=== PATIENT | female | born 1995 | race Caucasian/White ===

== ENCOUNTER 2016-06-15 18:56 | Outpatient (CLI) | payer MEDICAID | END 2016-06-15 20:20 | disposition home or self-care (01) | DX: O47.02 False labor before 37 completed weeks of gestation, second trimester (principal); Z3A.25 25 weeks gestation of pregnancy ==

== ENCOUNTER 2016-08-16 22:57 | Outpatient (CLI) | payer MEDICAID | END 2016-08-16 23:50 | disposition home or self-care (01) | DX: O98.513 Other viral diseases complicating pregnancy, third trimester (principal); A08.4 Viral intestinal infection, unspecified; Z3A.34 34 weeks gestation of pregnancy ==

== ENCOUNTER 2016-09-11 08:38 | Emergency (ER) | payer MEDICAID ==
[2016-09-11 08:46] VITALS: BP 106/73
[2016-09-11] MEDS ORDERED: BENZOCAINE/TETRACAINE/BUTAMBEN SPRAY 56 GM ONE (09:53)
[2016-09-11] MEDS ORDERED: CEPHALEXIN 250 MG CAPSULE PO STA (09:56)
[2016-09-11] MEDS ORDERED: CEPHALEXIN 250 MG CAPSULE PO ONE (09:58)
--- NOTE | 2016-09-11 09:59 | ED Physician Documentation ---
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 - Present Medications Home Medications: Ambulatory Orders Medication Instructions Recorded Confirmed Pnv95/Iron Fum/Folic Acid 1 tab PO DAILY 02/15/16 09/11/16 [ Caplet] Cephalexin [Keflex] 500 mg PO Q6H #28 capsule 09/11/16 - Allergies Allergies/Adverse Reactions: Allergies Allergy/AdvReac Type Severity Reaction Status Date / Time No Known Drug Allergies Allergy Verified 09/11/16 08:46 - Social History Does the pt smoke?: No Smoking Status: Former smoker PD ED PE NORMAL - Vitals Vital signs reviewed: Yes - Cardiac Cardiac: RRR - Respiratory Respiratory: No respiratory distress, Clear bilaterally - Abdomen Abdomen: Other (gravid) - Derm Derm: Other (small abscess upper inner R thigh) Results - Vitals Vitals: Vital Signs - 24 hr 09/11/16 08:44 Temperature 36.4 C L Heart Rate 102 H Respiratory 18 Rate Blood Pressure 106/73 O2 Saturation 100 Oxygen O2 Source Room air Procedures - Abscess I&D (location) R thigh Preparation: Alcohol, Topical spray Incision: Needle aspiration, Purulent drainage (2 cc), Culture obtained Other: Pt tolerated well, Dressing applied, Antibiotic prescribed PD MEDICAL DECISION MAKING - ED course ED course: FHT 150 Departure - Departure Disposition: 01 Home, Self Care Clinical Impression: Abscess Condition: Good Instructions: ED Abscess IandD Prescriptions: Cephalexin [Keflex] 500 mg PO Q6H #28 capsule Comments: Keflex is Category B safe in but please let your rougher helper know about any medications you are taking Warm compresses for 20 minutes three times a day will help clear the infection as well
== END 2016-09-11 10:38 | disposition home or self-care (01) ==
LOC: ED 08:38
DX: O26.893 Other specified pregnancy related conditions, third trimester (principal); L02.415 Cutaneous abscess of right lower limb; Z3A.37 37 weeks gestation of pregnancy; Z87.891 Personal history of nicotine dependence
CPT/HCPCS: 87070; 87205; 99283; A9270

== ENCOUNTER 2016-09-14 22:07 | Outpatient (CLI) | payer MEDICAID | END 2016-09-14 23:16 | disposition home or self-care (01) | DX: O34.219 Maternal care for unspecified type scar from previous cesarean delivery (principal); N85.8 Other specified noninflammatory disorders of uterus; O99.820 Streptococcus B carrier state complicating pregnancy; O76 Abnormality in fetal heart rate and rhythm complicating labor and delivery; Z3A.38 38 weeks gestation of pregnancy ==

== ENCOUNTER 2016-10-17 20:01 | Emergency (ER) | payer MEDICAID ==
[2016-10-17 21:06] LABS: BILIRUBIN,URINE NEGATIVE (NEGATIVE)
[2016-10-17 21:10] LABS: UA w/ MICROSCOPIC CHARGE YES
--- NOTE | 2016-10-17 21:25 | ED Physician Documentation ---
PD HPI FEMALE - Stated complaint Stated Complaint: FEMALE - Chief complaint Chief Complaint: Abd Pain - History obtained from History obtained from: Patient, Family - History of Present Illness Timing - onset: How many days ago (2) Timing - details: Gradual onset, Still present Associated symptoms: Pelvic pain, Dysuria, Urinary frequency. 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 Patient states that over the last few days she had developed dysuria and increased urinary frequency. Patient also states that the area around her vaginal tears has been painful. Review of Systems Constitutional: denies: Fever, Chills, Myalgias Ears: denies: Ear pain, Drainage/discharge Cardiac: denies: Chest pain / pressure, Palpitations Respiratory: denies: Dyspnea, Cough GI: reports: Abdominal Pain. 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 - Present Medications Home Medications: Ambulatory Orders Medication Instructions Recorded Confirmed Pnv95/Iron Fum/Folic Acid 1 tab PO DAILY 02/15/16 09/11/16 [ Caplet] Cephalexin [Keflex] 500 mg PO Q6H #28 capsule 09/11/16 Nitrofurantoin Monohyd/M-Cryst 100 mg PO BID 5 Days 10/17/16 [Macrobid 100 mg Capsule] - Allergies Allergies/Adverse Reactions: Allergies Allergy/AdvReac Type Severity Reaction Status Date / Time No Known Drug Allergies Allergy Verified 09/11/16 08:46 - Social History Does the pt smoke?: No Smoking Status: Former smoker PD ED PE NORMAL - Vitals Vital signs reviewed: Yes - General General: Alert and oriented X 3, No acute distress, Well developed/nourished - HEENT HEENT: Atraumatic, PERRL - Neck Neck: Supple, no meningeal sign, No bony TTP - Cardiac Cardiac: RRR, No murmur - Respiratory Respiratory: No respiratory distress, Clear bilaterally - Abdomen Abdomen: Soft, Non distended - Derm Derm: Normal color, Warm and dry, No rash - Extremities Extremities: No deformity, Normal ROM s pain, No edema - Neuro Neuro: Alert and oriented X 3, No motor deficit, No sensory deficit, Normal speech - Psych Psych: Normal mood, Normal affect PD ED PE EXPANDED - Female Female : Other (mild vaginal erythmea, no abscess, fluid collection or significant drainage). No: Vaginal Discharge Results - Vitals Vitals: Vital Signs - 24 hr 10/17/16 20:13 Temperature 36.6 C Heart Rate 101 H Respiratory 18 Rate Blood Pressure 110/82 H O2 Saturation 99 Oxygen O2 Source Room air - Labs Labs: Laboratory Tests 10/17/16 20:55 Urine Color YELLOW Urine Clarity HAZY Urine pH 6.[address] 1.020 Urine Protein NEGATIVE Urine Glucose (UA) NEGATIVE Urine Ketones TRACE Urine Occult Blood SMALL H Urine Nitrite NEGATIVE Urine Bilirubin NEGATIVE Urine Urobilinogen 0.2 (NORMAL) Ur Leukocyte Esterase SMALL H Urine RBC 6-10 H Urine WBC 11-25 H Ur Squamous Epith Cells RARE Squamous Urine Bacteria Few Ur Microscopic Review INDICATED Urine Culture Comments INDICATED PD MEDICAL DECISION MAKING - ED course Complexity details: reviewed old records, reviewed results, re-evaluated patient , considered differential, d/w patient, d/w family ED course: Patient was seen and examined at bedside. Patient was well appearing and vital signs were within normal limits. Patient's urine was collected. pelvic exam was performed. Patient's symptoms and results were consistent with a urinary tract infection. There was no abscess or sign of infected wound. Patient required no further work up at this time and was stable for discharge with outpatient follow up. Departure - Departure Disposition: 01 Home, Self Care Clinical Impression: Urinary tract infection Condition: Good Instructions: ED UTI Cystitis Female Follow-Up: Skye Rasmussen ARNP [Primary Care Provider] - Within 1 week Prescriptions: Nitrofurantoin Monohyd/M-Cryst [Macrobid 100 mg Capsule] 100 mg PO BID 5 Days Comments: Your symptoms today are being caused by a urinary tract infection and vaginitis. For the urinary tract infection you had your first antibiotic tonight and you will be on if for the next 5 days. It is safe for breast feeding. For the vaginitis try to keep the area clean and dry and changing the pads more quickly to keep the area dry. You should follow up with your doctor within the next week if your symptoms persist. You should return to the emergency department for fevers, chills, vomiting, new, worsening or uncontrollable symptoms.
[2016-10-17 21:26] LABS: UR CULTURE IF IND INDICATED
[2016-10-17] MEDS ORDERED: NITROFURANTOIN MACRO 100 MG CAPSULE PO STA (21:42)
[2016-10-17] MEDS ORDERED: NITROFURANTOIN MACRO 100 MG CAPSULE PO ONE (21:44)
[2016-10-17 21:58] VITALS: BP 114/63
== END 2016-10-17 21:57 | disposition home or self-care (01) ==
LOC: ED 20:01
DX: O86.20 Urinary tract infection following delivery, unspecified (principal); O86.13 Vaginitis following delivery; Z87.891 Personal history of nicotine dependence
CPT/HCPCS: 81001; 87086; 99283; A9270; 81003

== ENCOUNTER 2017-04-19 20:52 | Emergency (ER) | payer MEDICAID ==
[2017-04-19 21:29] LABS: BASOPHILS % (AUTO) 0.5 %; EOSINOPHILS # (AUTO) 0.1 10^3/uL (0.0-0.7); EOSINOPHILS % (AUTO) 0.8 %; HCT - HEMATOCRIT 43.9 % (37.0-47.0); HGB - HEMOGLOBIN 14.8 g/dL (12.0-16.0); LYMPHOCYTES # (AUTO) 2.3 10^3/uL (1.5-3.5); LYMPHOCYTES % (AUTO) 24.4 %; MEAN CORPUSCULAR HEMOGLOBIN 28.2 pg (27.0-31.0); MEAN CORPUSCULAR HGB CONC 33.6 g/dL (32.0-36.0); MEAN CORPUSCULAR VOLUME 83.7 fL (81.0-99.0); MEAN PLATELET VOLUME 8.6 fL (7.9-10.8); MONOCYTES # (AUTO) 0.4 10^3/uL (0.0-1.0); MONOCYTES % (AUTO) 4.7 %; NEUTROPHILS # (AUTO) 6.6 10^3/uL (1.5-6.6); NEUTROPHILS % (AUTO) 69.6 %; RED BLOOD COUNT 5.24 10^6/uL (4.20-5.40); RED CELL DISTRIBUTION WIDTH 13.2 % (12.0-15.0); UNCORRECTED WHITE BLOOD COUNT 9.5 x10^3/uL; WHITE BLOOD COUNT 9.5 x10^3/uL (4.8-10.8)
[2017-04-19 21:31] LABS: BILIRUBIN,URINE NEGATIVE (NEGATIVE)
[2017-04-19 21:34] LABS: HCG UR QUAL NEGATIVE; UA CHARGE (STRIP ONLY) YES; UR CULTURE IF IND NOT INDICATED
[2017-04-19 21:41] LABS: ALBUMIN/GLOBULIN RATIO 1.3 (1.0-2.2); BILIRUBIN,TOTAL 0.6 mg/dL (0.2-1.0); CALCIUM 9.4 mg/dL (8.5-10.3); CREATININE 0.5 mg/dL (0.4-1.0); POTASSIUM 3.5 mmol/L (3.5-5.0); TOTAL PROTEIN 7.9 g/dL (6.7-8.2)
--- NOTE | 2017-04-19 22:39 | ED Physician Documentation ---
PD HPI ABD PAIN - Stated complaint Stated Complaint: ABD PX - Chief complaint Chief Complaint: Abd Pain - History obtained from History obtained from: Patient, Family - History of Present Illness Timing - onset: How many weeks ago (3) Timing - details: Intermittant, Waxing and waning Quality: Cramping, Aching Location: RLQ, LLQ Worsened by: Other (urinating or deficating) Associated symptoms: No: Fever, Nausea, Vomiting, Diarrhea, Constipation, Dysuria, Hematuria, Chest pain, Dizzy, Vaginal bleeding, Vaginal dc Similar symptoms before: Has not had sx before Recently seen: Not recently seen - Additional information Additional information: patient is a 22 year old female presenting to the emergency department for intermittent abdominal pain. patient states that since around thanksgiving ( about 3 weeks prior) when patient goes to the bathroom afterwords she will have sharp pains on both sides of her abdomen. the pain goes away without any intervention. patient denies nausea, vomiting, fevers, chills, vaginal bleeding , or vaginal discharge. Review of Systems Constitutional: denies: Fever, Chills Eyes: reports: Reviewed and negative Ears: reports: Reviewed and negative Nose: reports: Reviewed and negative Throat: reports: Reviewed and negative Cardiac: denies: Chest pain / pressure Respiratory: reports: Reviewed and negative GI: reports: Abdominal Pain. 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 - Present Medications Home Medications: Ambulatory Orders Medication Instructions Recorded Confirmed Pnv95/Iron Fum/Folic Acid 1 tab PO DAILY 02/15/16 09/11/16 [ Caplet] Cephalexin [Keflex] 500 mg PO Q6H #28 capsule 09/11/16 Nitrofurantoin Monohyd/M-Cryst 100 mg PO BID 5 Days capsule 10/17/16 [Macrobid 100 mg Capsule] - Allergies Allergies/Adverse Reactions: Allergies Allergy/AdvReac Type Severity Reaction Status Date / Time No Known Drug Allergies Allergy Verified 09/11/16 08:46 - Social History Does the pt smoke?: Yes Smoking Status: Current every day smoker Does the pt drink ETOH?: Yes Does the pt have substance abuse?: No - Immunizations Immunizations are current?: Yes PD ED PE NORMAL - Vitals Vital signs reviewed: Yes - General General: Alert and oriented X 3, No acute distress, Well developed/nourished - HEENT HEENT: Atraumatic, PERRL, Pharynx benign - Neck Neck: Supple, no meningeal sign - Cardiac Cardiac: RRR, No murmur - Respiratory Respiratory: No respiratory distress - Abdomen Abdomen: Soft, Non tender, Non distended - Derm Derm: Normal color, Warm and dry, No rash - Extremities Extremities: No deformity, Normal ROM s pain, No calf tenderness / cord - Neuro Neuro: Alert and oriented X 3, No motor deficit, No sensory deficit, Normal speech - Psych Psych: Normal mood Results - Vitals Vitals: Vital Signs - 24 hr 04/19/17 04/19/17 20:59 22:49 Temperature 36.4 C L Heart Rate 106 H 109 H Respiratory 18 20 Rate Blood Pressure 107/76 111/75 O2 Saturation 100 98 Oxygen O2 Source Room air - Labs Labs: Laboratory Tests 04/19/17 04/19/17 04/19/17 21:05 21:23 21:23 WBC 9.5 RBC 5.24 Hgb 14.8 Hct 43.9 MCV 83.7 MCH 28.2 MCHC 33.6 RDW 13.2 Plt Count 236 MPV 8.6 Neut # 6.6 Lymph # 2.3 [place] # 0.4 Eos # 0.1 Baso # 0.0 Absolute Nucleated RBC 0.00 Nucleated RBC % 0.0 Sodium 136 Potassium 3.5 Chloride 103 Carbon Dioxide 24 Anion Gap 9.0 BUN 13 Creatinine 0.5 Estimated GFR (MDRD) 153 Glucose 91 Calcium 9.4 Total Bilirubin 0.6 AST 60 H ALT 86 H Alkaline Phosphatase 76 Total Protein 7.9 Albumin 4.5 Globulin 3.4 Albumin/Globulin Ratio 1.3 Lipase 18 L Urine Color YELLOW Urine Clarity CLEAR Urine pH 7.0 Ur Specific [place] 1.025 Urine Protein NEGATIVE Urine Glucose (UA) NEGATIVE Urine Ketones NEGATIVE Urine Occult Blood NEGATIVE Urine Nitrite NEGATIVE Urine Bilirubin NEGATIVE Urine Urobilinogen 0.2 (NORMAL) Ur Leukocyte Esterase NEGATIVE Ur Microscopic Review NOT INDICATED Urine Culture Comments NOT INDICATED Urine HCG, Qual NEGATIVE PD MEDICAL DECISION MAKING - ED course Complexity details: reviewed old records, reviewed results, re-evaluated patient , considered differential, d/w patient, d/w family ED course: Patient was seen and examined at bedside. patient had no pain at that time. Urine was collected and labs were drawn. patient's diagnostics were within normal limits. Patient's abdominal exam on discharge was non-tender, non distended and overall unremarkable. the etiology of the patient's pain is unknown but unlikely life threatening in nature. Patient was stable for discharge with outpatient follow up. Departure - Departure Disposition: Home, Self Care Clinical Impression: Abdominal pain Condition: Good Instructions: Abdominal Pain Follow-Up: Skye Rasmussen ARNP [Primary Care Provider] - As Needed Comments: Your diagnostics today are within normal limits. there is no sign of acute infection. You can take motrin or tylenol as needed fro pain. You should follow up with your doctor if your symptoms persist. You may return to the emergency department at any time for new, worsening or uncontrollable symptoms. Discharge Date/Time: 04/19/17 22:50
[2017-04-19 22:50] VITALS: BP 111/75
== END 2017-04-19 22:50 | disposition home or self-care (01) ==
LOC: ED 20:52
DX: R10.32 Left lower quadrant pain (principal); R10.31 Right lower quadrant pain; F17.200 Nicotine dependence, unspecified, uncomplicated
CPT/HCPCS: 36415; 80053; 81001; 81003; 81025; 83690; 85025; 87086; 99283

== ENCOUNTER 2017-06-13 20:10 | Emergency (ER) | payer MEDICAID ==
[2017-06-13 20:41] LABS: BASOPHILS # (AUTO) 0.1 10^3/uL (0.0-0.1); EOSINOPHILS # (AUTO) 0.1 10^3/uL (0.0-0.7); EOSINOPHILS % (AUTO) 1.1 %; HGB - HEMOGLOBIN 14.6 g/dL (12.0-16.0); LYMPHOCYTES # (AUTO) 2.4 10^3/uL (1.5-3.5); LYMPHOCYTES % (AUTO) 24.9 %; MEAN CORPUSCULAR HEMOGLOBIN 28.6 pg (27.0-31.0); MEAN PLATELET VOLUME 8.8 fL (7.9-10.8); MONOCYTES # (AUTO) 0.5 10^3/uL (0.0-1.0); MONOCYTES % (AUTO) 4.8 %; NEUTROPHILS # (AUTO) 6.6 10^3/uL (1.5-6.6); NEUTROPHILS % (AUTO) 68.2 %; PLT - PLATELET COUNT 251 10^3/uL (130-450); RED BLOOD COUNT 5.11 10^6/uL (4.20-5.40); RED CELL DISTRIBUTION WIDTH 13.7 % (12.0-15.0); WHITE BLOOD COUNT 9.7 x10^3/uL (4.8-10.8)
[2017-06-13 20:53] LABS: ALBUMIN 4.7 g/dL (3.2-5.5); ALBUMIN/GLOBULIN RATIO 1.5 (1.0-2.2); BILIRUBIN,TOTAL 0.4 mg/dL (0.2-1.0); CALCIUM 9.6 mg/dL (8.5-10.3); CREATININE 0.6 mg/dL (0.4-1.0); TOTAL PROTEIN 7.9 g/dL (6.7-8.2)
[2017-06-13 21:00] LABS: GLUCOSE, URINE (UA) NEGATIVE (NEGATIVE); KETONES,URINE (UA) NEGATIVE (NEGATIVE); LEUKOCYTE ESTERASE, URINE NEGATIVE (NEGATIVE); NITRITE,URINE NEGATIVE (NEGATIVE); OCCULT BLOOD,URINE LARGE (NEGATIVE); PROTEIN,URINE NEGATIVE (NEGATIVE); UROBILINOGEN,URINE 0.2 (NORMAL) E.U./dL (NORMAL)
[2017-06-13 21:05] LABS: BILIRUBIN,URINE NEGATIVE (NEGATIVE); CLARITY,URINE HAZY (CLEAR); HCG UR QUAL NEGATIVE; ICTOTEST,URINE NEGATIVE
[2017-06-13] MEDS ORDERED: KETOROLAC 60 MG/2 ML VIAL IVP STA (21:07)
--- NOTE | 2017-06-13 21:08 | ED Physician Documentation ---
PD HPI ABD PAIN - Stated complaint Stated Complaint: ABD PX - Chief complaint Chief Complaint: Abd Pain - History obtained from History obtained from: Patient, Family - History of Present Illness Timing - onset: Chronic Timing - details: Gradual onset, Still present Quality: Cramping, Aching Location: All over / everywhere Radiation: Lower back, Left flank, Right flank Associated symptoms: Nausea. No: Vomiting Similar symptoms before: Work up / diagnostics Recently seen: Emergency Dept - Additional information Additional information: Patient is a 22 year old female with a history of anxiety, depression and chronic pain who is presenting to the emergency department for bilateral flank and abdominal pain. patient states that it has been going on for weeks. Patient went to [facility] where she was told her IUD was out of place. Patient states that the pain persisted so she came to the emergency department. Patient complains of nausea but no vomiting, no urinary, bowel or vaginal complaints. Review of Systems Constitutional: denies: Fever Eyes: reports: Reviewed and negative Ears: reports: Reviewed and negative Nose: reports: Reviewed and negative Throat: reports: Reviewed and negative Cardiac: denies: Chest pain / pressure Respiratory: denies: Cough, Wheezing GI: reports: Abdominal Pain, Nausea. 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 Home Medications: Ambulatory Orders Medication Instructions Recorded Confirmed No Known Home Medications [No 06/13/17 06/13/17 Known Home Medications] - Allergies Allergies/Adverse Reactions: Allergies Allergy/AdvReac Type Severity Reaction Status Date / Time No Known Drug Allergies Allergy Verified 06/13/17 20:35 - Social History Does the pt smoke?: Yes Smoking Status: Current every day smoker Does the pt drink ETOH?: Yes Does the pt have substance abuse?: No - Immunizations Immunizations are current?: Yes PD ED PE NORMAL - Vitals Vital signs reviewed: Yes - General General: Alert and oriented X 3 - HEENT HEENT: Atraumatic, PERRL - Neck Neck: Supple, no meningeal sign - Cardiac Cardiac: RRR, No murmur - Respiratory Respiratory: No respiratory distress - Abdomen Abdomen: Soft - Derm Derm: Normal color, No rash - Extremities Extremities: No deformity - Neuro Neuro: Alert and oriented X 3, No motor deficit, Normal speech PD ED PE EXPANDED - General General: Alert, In Pain - HEENT HEENT: Dry mucous membranes - Abdomen Abdomen: Tender to palpation, Generalized/diffuse. No: Rebound, Guarding Results - Vitals Vitals: Vital Signs - 24 hr 06/13/17 06/13/17 20:13 20:16 Temperature 36.1 C L 36.1 C L Heart Rate 104 H 104 H Respiratory 24 24 Rate Blood Pressure 113/85 H 113/85 H O2 Saturation 100 100 Oxygen O2 Source Room air - Labs Labs: Laboratory Tests 06/13/17 06/13/17 06/13/17 20:35 20:35 20:48 WBC 9.7 RBC 5.11 Hgb 14.6 Hct 43.0 MCV 84.0 MCH 28.6 MCHC 34.0 RDW 13.7 Plt Count 251 MPV 8.8 Neut # 6.6 Lymph # 2.4 [place] # 0.5 Eos # 0.1 Baso # 0.1 Absolute Nucleated RBC 0.00 Nucleated RBC % 0.0 Sodium 138 Potassium 3.7 Chloride 108 Carbon Dioxide 21 Anion Gap 9.0 BUN 13 Creatinine 0.6 Estimated GFR (MDRD) 124 Glucose 103 H Calcium 9.6 Total Bilirubin 0.4 AST 32 ALT 35 Alkaline Phosphatase 80 Total Protein 7.9 Albumin 4.7 Globulin 3.2 Albumin/Globulin Ratio 1.5 Lipase 19 L Urine Color DARK YELLOW Urine Clarity HAZY Urine pH 6.0 Ur Specific [place] >=1.030 H Urine Protein NEGATIVE Urine Glucose (UA) NEGATIVE Urine Ketones NEGATIVE Urine Occult Blood LARGE H Urine Nitrite NEGATIVE Urine Bilirubin NEGATIVE Urine Urobilinogen 0.2 (NORMAL) Ur Leukocyte Esterase NEGATIVE Urine RBC TNTC H Urine WBC 0-3 Ur Squamous Epith Cells RARE Squamous Urine Bacteria None Seen Ur Microscopic Review INDICATED Urine Culture Comments NOT INDICATED Urine HCG, Qual NEGATIVE PD MEDICAL DECISION MAKING - ED course Complexity details: reviewed old records, reviewed results, re-evaluated patient , considered differential, d/w patient, d/w family ED course: Patient was seen and examined at bedside. labs were drawn and urine was collected. patient was treated with toradol when it was found that she was not . previous results from neighboring ER were requested and reviewed. Patient had a renal calculi that possibly was in the ureter now. Patient was started on a fluid bolus. Patient stated that the toradol had taken the edge off but still was in pain so was treated with IV lidocaine. After the infusion patient stated that her pain had resolved. patient required no further work up and was stale for discharge with outpatient follow up. Departure - Departure Disposition: Home, Self Care Clinical Impression: Renal colic Condition: Good Instructions: ED Stone Renal W Colic Follow-Up: Skye Rasmussen ARNP [Primary Care Provider] - Comments: It is important that you stay well hydrated. You should avoid diuretics ( especially soda). You can take motrin and tylenol as needed for pain. you should follow up with your doctor who placed the IUD for removal and replacement. You may return to the emergency department at any time for new, worsening or uncontrollable symptoms.
[2017-06-13 21:19] LABS: BACTERIA,URINE None Seen /HPF (None Seen); RBC,URINE TNTC /HPF (0-5); SQUAMOUS EPITHELIAL CELL,UR RARE Squamous (<= Few)
[2017-06-13] MEDS ORDERED: LIDOCAINE-MPF 2% 10 ML in SODIUM CHLORIDE 0.9% 50 ML IV STA (21:19)
[2017-06-13] MEDS ORDERED: SODIUM CHLORIDE 0.9% 1,000 ML IV ONE (21:19)
[2017-06-13] MEDS ORDERED: LIDOCAINE IV ONE (21:32)
[2017-06-13 22:42] VITALS: BP 111/73
== END 2017-06-13 22:42 | disposition home or self-care (01) ==
LOC: ED 20:10
DX: N23 Unspecified renal colic (principal); F41.9 Anxiety disorder, unspecified; F32.9 Major depressive disorder, single episode, unspecified; G89.29 Other chronic pain; Z97.5 Presence of (intrauterine) contraceptive device; F17.200 Nicotine dependence, unspecified, uncomplicated
CPT/HCPCS: 36415; 80053; 81001; 81025; 83690; 85025; 96365; 96375; 99283; 99284; J7040; 81003; 87086

== ENCOUNTER 2017-08-20 09:33 | Emergency (ER) | payer MEDICAID ==
--- NOTE | 2017-08-20 09:52 | ED Physician Documentation ---
PD HPI DYSPNEA - Stated complaint Stated Complaint: DIFFICULTY BREATHING - Chief complaint Chief Complaint: Resp - History obtained from History obtained from: Patient, Family - History of Present Illness Timing - onset: How many weeks ago (1) Timing - onset during: Rest Timing - duration: Weeks (1) Timing - details: Gradual onset, Still present Inciting event(s): URI Improved by: Rest Worsened by: Exertion, Coughing Associated symptoms: Cough, Wheezing, Other (ear pain). No: Hemoptysis Similar symptoms before: Diagnosis (bronchitis) Recently seen: Not recently seen - Additional information Additional information: 32-year-old mother of 2 has developed cough congestion and shortness of breath. She is a smoker she does have issues with cough infrequently but over the past week she has had a persistent cough and she has some ear pain as well. She is noted that she is a bit short of breath with any form of exertion. She has used an inhaler previously she does not have an inhaler with her or in her possession. 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 - Present Medications Home Medications: Ambulatory Orders Medication Instructions Recorded Confirmed Albuterol Sulf [Ventolin Hfa 1 - 2 puffs INH Q4HR PRN #1 inhaler 08/20/17 Inhaler] Azithromycin [Zithromax] 250 mg PO DAILY #6 tablet 08/20/17 predniSONE [Deltasone] 10 mg PO DAILY #26 tablet 08/20/17 - Allergies Allergies/Adverse Reactions: Allergies Allergy/AdvReac Type Severity Reaction Status Date / Time No Known Drug Allergies Allergy Verified 08/20/17 09:42 - Social History Does the pt smoke?: Yes Smoking Status: Current every day smoker Does the pt drink ETOH?: Yes Does the pt have substance abuse?: No - Immunizations Immunizations are current?: Yes PD ED PE NORMAL - Vitals Vital signs reviewed: Yes (tachypneia) - General General: Alert and oriented X 3, No acute distress, Well developed/nourished - HEENT HEENT: Atraumatic, PERRL, EOMI, Other (both TM's are dull yellow thickended with some inflamation and abscence of landmarks. ) - Neck Neck: Supple, no meningeal sign, No bony TTP - Cardiac Cardiac: RRR, No murmur - Respiratory Respiratory: No respiratory distress, Other (diminished breath sounds) - Abdomen Abdomen: Soft, Non tender - Back Back: No CVA TTP, No spinal TTP - Derm Derm: Normal color, Warm and dry, No rash - Extremities Extremities: No deformity, No edema - Neuro Neuro: Alert and oriented X 3, No motor deficit, No sensory deficit, Normal speech Eye Opening: Spontaneous Motor: Obeys Commands Verbal: Oriented GCS Score: 15 - Psych Psych: Normal mood, Normal affect Results - Vitals Vitals: Vital Signs - 24 hr 08/20/17 08/20/17 09:35 10:25 Temperature 36.3 C L Heart Rate 99 98 Respiratory 28 H 16 Rate Blood Pressure 100/61 O2 Saturation 100 Oxygen O2 Source Room air - EKG (time done) 0938 Rate: Rate (enter#) (79) Rhythm: NSR Other comments: Other comments (RSR in V1) Compare to prior EKG: Old EKG unavailable Computer interpretation: Disagree with computer (the rhythm is sinus) - Rads (name of study) 2 veiw chest Radiology: Prelim report reviewed (Impression: No acute cardiopulmonary abnormality.), EMP read indepedently, See rad report PD MEDICAL DECISION MAKING - ED course Complexity details: reviewed results, re-evaluated patient, d/w patient, d/w family ED course: 22-year-old female with shortness of breath cough and congestion has otitis on examination and she is administered a DuoNeb treatment she is given 10 mg of dexamethasone and we will put her on some antibiotic in a inhaler and a short course of prednisone. Departure - Departure Disposition: 01 Home, Self Care Clinical Impression: Otitis media Qualifiers: Otitis media type: suppurative Chronicity: acute Laterality: bilateral Recurrence: not specified as recurrent Spontaneous tympanic membrane rupture: without spontaneous rupture Qualified Code(s): H66.003 - Acute suppurative otitis media without spontaneous rupture of ear drum, bilateral Condition: Stable Instructions: ED Otitis Media Acute Adult, ED Bronchitis Asthmatic Follow-Up: Skye Rasmussen ARNP [Primary Care Provider] - Prescriptions: Albuterol Sulf [Ventolin Hfa Inhaler] 1 - 2 puffs INH Q4HR PRN #1 inhaler PRN Reason: Shortness Of Air/Wheezing Azithromycin [Zithromax] 250 mg PO DAILY #6 tablet predniSONE [Deltasone] 10 mg PO DAILY #26 tablet
[2017-08-20] MEDS ORDERED: DEXAMETHASONE 10 MG/ML VIAL PO STA (10:05)
[2017-08-20] MEDS ORDERED: IPRATROPIUM/ALBUTEROL 3 ML NEB INH STA (10:05)
--- NOTE | 2017-08-20 10:32 | XRAY Report ---
EXAM: CHEST RADIOGRAPHY EXAM DATE: 08/20/2017 10:18 AM. CLINICAL HISTORY: Decreased breath sounds. COMPARISON: None available. TECHNIQUE: 2 views. FINDINGS: Lungs/Pleura: No focal opacities evident. No pleural effusion. No pneumothorax. Normal volumes. Mediastinum: Heart and mediastinal contours are unremarkable. Other: None. IMPRESSION: No acute cardiopulmonary abnormality. [facility] Referring Provider Line: [phone] SITE ID: [id number]
[2017-08-20 11:21] VITALS: BP 127/66
== END 2017-08-20 11:16 | disposition home or self-care (01) ==
LOC: ED 09:33
DX: H66.003 Acute suppurative otitis media without spontaneous rupture of ear drum, bilateral (principal); F17.200 Nicotine dependence, unspecified, uncomplicated
CPT/HCPCS: 71046; 93005; 94640; 94664; 99283; 99284

== ENCOUNTER 2017-09-24 16:25 | Emergency (ER) | payer MEDICAID ==
[2017-09-24 17:16] LABS: BILIRUBIN,URINE NEGATIVE (NEGATIVE); GLUCOSE, URINE (UA) NEGATIVE (NEGATIVE); KETONES,URINE (UA) NEGATIVE (NEGATIVE); LEUKOCYTE ESTERASE, URINE TRACE (NEGATIVE); NITRITE,URINE NEGATIVE (NEGATIVE); OCCULT BLOOD,URINE LARGE (NEGATIVE); PH,URINE 7.5 PH (5.0-7.5); PROTEIN,URINE NEGATIVE (NEGATIVE); UROBILINOGEN,URINE 0.2 (NORMAL) E.U./dL (NORMAL)
[2017-09-24 17:22] LABS: CLARITY,URINE CLEAR (CLEAR); HCG UR QUAL NEGATIVE
[2017-09-24 17:34] LABS: BACTERIA,URINE None Seen /HPF (None Seen); RBC,URINE TNTC /HPF (0-5); SQUAMOUS EPITHELIAL CELL,UR MOD Squamous (<= Few)
[2017-09-24 18:04] LABS: BASOPHILS % (AUTO) 0.6 %; EOSINOPHILS # (AUTO) 0.1 10^3/uL (0.0-0.7); HGB - HEMOGLOBIN 14.5 g/dL (12.0-16.0); MEAN CORPUSCULAR HGB CONC 33.6 g/dL (32.0-36.0); MEAN CORPUSCULAR VOLUME 83.2 fL (81.0-99.0); MEAN PLATELET VOLUME 9.1 fL (7.9-10.8); MONOCYTES # (AUTO) 0.4 10^3/uL (0.0-1.0); MONOCYTES % (AUTO) 5.9 %; NEUTROPHILS # (AUTO) 5.1 10^3/uL (1.5-6.6); NEUTROPHILS % (AUTO) 66.5 %; PLT - PLATELET COUNT 212 10^3/uL (130-450); RED BLOOD COUNT 5.19 10^6/uL (4.20-5.40); RED CELL DISTRIBUTION WIDTH 13.7 % (12.0-15.0); WHITE BLOOD COUNT 7.7 x10^3/uL (4.8-10.8)
[2017-09-24] MEDS ORDERED: IBUPROFEN 800 MG TABLET PO STA (18:13)
--- NOTE | 2017-09-24 18:15 | ED Physician Documentation ---
PD HPI ABD PAIN - Stated complaint Stated Complaint: ABD PX - Chief complaint Chief Complaint: Abd Pain - History obtained from History obtained from: Patient - History of Present Illness Timing - onset: Today (22-year-old woman otherwise healthy with a history of ovarian cysts, never operated on except for a presents with left lower pelvic pain there is a crampy sensation started today. She is worried about potential misplacement of her recently placed IUD which is a month and a half old. She is having spotting but not heavy bleeding. 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: Ovarian cysts : Kidney stones Psych: Depression, Anxiety, Post traumatic stress disorder - Past Surgical History Past Surgical History: Yes /RN FIRST ASSISTANT: section - Present Medications Home Medications: Ambulatory Orders Medication Instructions Recorded Confirmed Ibuprofen [Motrin] 800 mg PO Q8H PRN #30 tablet 09/24/17 - Allergies Allergies/Adverse Reactions: Allergies Allergy/AdvReac Type Severity Reaction Status Date / Time No Known Drug Allergies Allergy Verified 09/24/17 16:44 - Social History Does the pt smoke?: Yes Smoking Status: Current every day smoker Does the pt drink ETOH?: Yes Does the pt have substance abuse?: No - Immunizations Immunizations are current?: Yes PD ED PE NORMAL - Vitals Vital signs reviewed: Yes - General General: Alert and oriented X 3, No acute distress - Abdomen Abdomen: Normal bowel sounds, Soft, Non tender - Female Female : Medical Laboratory Technical Officer present (Rosanne Ortega RN), Other (Modest blood in the vault, strings seem to be in their appropriate position, no tenderness.) - Back Back: No CVA TTP, No spinal TTP - Neuro Neuro: Alert and oriented X 3, Normal speech - Psych Psych: Normal mood, Normal affect Results - Vitals Vitals: Vital Signs - 24 hr 09/24/17 09/24/17 16:42 19:58 Temperature 36.9 C Heart Rate 93 71 Respiratory 16 20 Rate Blood Pressure 109/66 109/71 O2 Saturation 97 99 Oxygen O2 Source Room air - Labs Labs: Laboratory Tests 09/24/17 09/24/17 09/24/17 16:52 17:43 17:43 WBC 7.7 RBC 5.19 Hgb 14.5 Hct 43.2 MCV 83.2 MCH 28.0 MCHC 33.6 RDW 13.7 Plt Count 212 MPV 9.1 Neut # 5.1 Lymph # 2.0 [place] # 0.4 Eos # 0.1 Baso # 0.0 Absolute Nucleated RBC 0.00 Nucleated RBC % 0.1 Sodium 138 Potassium 3.8 Chloride 104 Carbon Dioxide 27 Anion Gap 7.0 BUN 11 Creatinine 0.6 Estimated GFR (MDRD) 124 Glucose 91 Calcium 9.6 Total Bilirubin 0.7 AST 27 ALT 35 Alkaline Phosphatase 73 Total Protein 7.3 Albumin 4.1 Globulin 3.2 Albumin/Globulin Ratio 1.3 Lipase 24 Urine Color YELLOW Urine Clarity CLEAR Urine pH 7.5 Ur Specific [place] 1.025 Urine Protein NEGATIVE Urine Glucose (UA) NEGATIVE Urine Ketones NEGATIVE Urine Occult Blood LARGE H Urine Nitrite NEGATIVE Urine Bilirubin NEGATIVE Urine Urobilinogen 0.2 (NORMAL) Ur Leukocyte Esterase TRACE H Urine RBC TNTC H Urine WBC 0-3 Ur Squamous Epith Cells MOD Squamous H Urine Bacteria None Seen Ur Microscopic Review INDICATED Urine Culture Comments NOT INDICATED Urine HCG, Qual NEGATIVE - Rads (name of study) Pelvic sono Radiology: Prelim report reviewed (normal, IUD in place) PD MEDICAL DECISION MAKING - ED course ED course: 22-year-old with left pelvic pain. She is nontender and there is no evidence of significant abnormality on exam, blood work or ultrasound. Departure - Departure Disposition: 01 Home, Self Care Clinical Impression: Pelvic pain Condition: Good Record reviewed to determine appropriate education?: Yes Instructions: ED Pelvic Pain [facility] Prescriptions: Ibuprofen [Motrin] 800 mg PO Q8H PRN #30 tablet PRN Reason: PAIN &/OR FEVER Comments: Call your doctor to arrange a follow-up appointment, make the next available appointment. In the interim, return anytime if worse or if new symptoms develop.
[2017-09-24 18:18] LABS: ALBUMIN 4.1 g/dL (3.2-5.5); ALBUMIN/GLOBULIN RATIO 1.3 (1.0-2.2); BILIRUBIN,TOTAL 0.7 mg/dL (0.2-1.0); CALCIUM 9.6 mg/dL (8.5-10.3); CREATININE 0.6 mg/dL (0.4-1.0); TOTAL PROTEIN 7.3 g/dL (6.7-8.2)
--- NOTE | 2017-09-24 19:53 | Ultrasound Report ---
EXAM: PELVIC ULTRASOUND EXAM DATE: 09/24/2017 07:37 PM. CLINICAL HISTORY: Left pelvic pain. COMPARISON: None. TECHNIQUE: Realtime transabdominal pelvic scan performed to identify the uterus and adnexa and as an overview of other pelvic structures, followed by transvaginal scan to provide greater detail of the uterus and adnexa, with static image documentation. FINDINGS Uterus: 8.4 x 4.7 x 4.3 cm, volume 88.7 cc. Retroflexed position. Normal overall size and echotexture. Masses: None. Endometrium: [address] Cervix: Unremarkable. Right Ovary: 3.3 x 2.3 x 2.3 cm, volume 9.1 cc. Normal echotexture and blood flow. Left Ovary: 3.4 x 2.2 x 2.2 cm, volume 8.6 cc. Normal echotexture and blood flow. Free Fluid: None. Other: None. IMPRESSION: IUD in place, otherwise unremarkable pelvic ultrasound. [facility] Referring Provider Line: [phone] SITE ID: [id number] REVISED: REPORT ORIG. SIGNED ON 09/24/2017@1953; ORDERS LINKED ON 2017jll MTDD
[2017-09-24 19:58] VITALS: BP 109/71
== END 2017-09-24 21:13 | disposition home or self-care (01) ==
LOC: ED 16:25
DX: R10.2 Pelvic and perineal pain (principal); Z87.442 Personal history of urinary calculi; Z97.5 Presence of (intrauterine) contraceptive device; F17.200 Nicotine dependence, unspecified, uncomplicated
CPT/HCPCS: 36415; 76830; 76856; 80053; 81001; 81025; 83690; 85025; 87491; 87591; 93975; 99283; A9270; 81003; 87086

== ENCOUNTER 2017-10-05 12:40 | Emergency (ER) | payer MEDICAID ==
--- NOTE | 2017-10-05 15:29 | ED Physician Documentation ---
PD HPI HEENT - Stated complaint Stated Complaint: DENTAL SWELLING/PX - Chief complaint Chief Complaint: Heent - History obtained from History obtained from: Patient - History of Present Illness Timing - onset: How many days ago (5) Timing - duration: Days (5had wisdom teeth romoved 5 days ago and is noting increased pain right lower gum area post extraction, along wiht malodor and taste. Concerned about infection. Other extraction sites are okay) Timing - details: Gradual onset (teeth/gums hurting post extractions but the pain and some swelling left lower was gradual the past couple of days.) Location: Tooth Improves: No: Medication Associated symptoms: No: Fever, Congestion, Rhinorrhea, Unable to swallow, Swollen nodes Recently seen: Clinic (dental extractions of wisdom teeth 5 days ago.) Review of Systems Constitutional: denies: Fever, Chills, Myalgias Throat: reports: Dental pain / toothache. 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: Ovarian cysts : Kidney stones Psych: Depression, Anxiety, Post traumatic stress disorder - Past Surgical History Past Surgical History: Yes /BODY WELDER: section - Present Medications Home Medications: Ambulatory Orders Medication Instructions Recorded Confirmed Ibuprofen [Motrin] 800 mg PO Q8H PRN #30 tablet 09/24/17 Chlorhexidine Gluconate [Peridex] 5 ml MM BID #118 ml 10/05/17 Clindamycin HCl [Cleocin HCl] 300 mg PO TID #21 capsule 10/05/17 HYDROcod/ACETAM 5/325 [[place] 5/325] 1 tab PO Q6H PRN #15 tablet 10/05/17 - Allergies Allergies/Adverse Reactions: Allergies Allergy/AdvReac Type Severity Reaction Status Date / Time No Known Drug Allergies Allergy Verified 09/24/17 16:44 - Social History Does the pt smoke?: Yes Smoking Status: Current every day smoker Does the pt drink ETOH?: Yes Does the pt have substance abuse?: No - Immunizations Immunizations are current?: Yes PD ED PE NORMAL - Vitals Vital signs reviewed: Yes - General General: Alert and oriented X 3, No acute distress, Well developed/nourished - HEENT HEENT: Pharynx benign. No: Dentition benign (extraction sites for wisdom teeth healing okay. Right lower has some redness of gum and slight swelling with some odor of the area. No noted drainage nor blood in remaining socket hole. ) - Neck Neck: Supple, no meningeal sign, Other (mild adenopathy right anterior. ) Results - Vitals Vitals: Oxygen O2 Source Room air PD MEDICAL DECISION MAKING - ED course Complexity details: considered differential (some swelling of the gum and states malodor, so concern for infection. No noted abscess. ), d/w patient Departure - Departure Disposition: 01 Home, Self Care Clinical Impression: Pain in gums, Status post tooth extraction Condition: Stable Record reviewed to determine appropriate education?: Yes Follow-Up: Skye Rasmussen ARNP [Primary Care Provider] - Prescriptions: Chlorhexidine Gluconate [Peridex] 5 ml MM BID #118 ml Clindamycin HCl [Cleocin HCl] 300 mg PO TID #21 capsule HYDROcod/ACETAM 5/325 [[place] 5/325] 1 tab PO Q6H PRN #15 tablet PRN Reason: Pain Comments: Drink lots of fluids. Continue the ibuprofen 400-600 mg 3 times a day. Add Tylenol or hydrocodone if needed for pains. Stop the amoxicillin and change to clindamycin instead 3 times a day for a week. Add chlorhexidine oral antiseptic rinse 4 times a day for the next 4 5 days as well. Recheck if not improving over the next few days; follow-up with the dentist. Discharge Date/Time: 10/05/17 16:18
[2017-10-05] MEDS ORDERED: CLINDAMYCIN 150 MG CAPSULE PO STA (15:49)
[2017-10-05] MEDS ORDERED: DEXAMETHASONE 10 MG/ML VIAL PO STA (15:49)
[2017-10-05] MEDS ORDERED: HYDROcod/ACETAM 5/325 MG TABLET PO STA (15:49)
[2017-10-05 16:04] VITALS: BP 110/70
[2017-10-05] MEDS ORDERED: CHERRY SYRUP 10 ML UDC PO ONE (16:07)
== END 2017-10-05 16:18 | disposition home or self-care (01) ==
LOC: ED 12:40
DX: K08.89 Other specified disorders of teeth and supporting structures (principal); K08.409 Partial loss of teeth, unspecified cause, unspecified class; F17.200 Nicotine dependence, unspecified, uncomplicated
CPT/HCPCS: 99283; A9270

== ENCOUNTER 2017-11-18 16:14 | Emergency (ER) | payer MEDICAID ==
[2017-11-18 16:30] VITALS: BP 106/67
--- NOTE | 2017-11-18 16:48 | XRAY Report ---
Procedure Date: 11/18/2017 Accession Number: [id number] / [id number] Procedure: XR - Chest 2 View X-Ray CPT Code: 44319 FULL RESULT: EXAM: CHEST RADIOGRAPHY EXAM DATE: 11/18/2017 04:38 PM. CLINICAL HISTORY: Cough, tight resp. COMPARISON: 08/20/17. TECHNIQUE: 2 views. FINDINGS: Lungs/Pleura: No dense consolidation. No large effusion or pneumothorax. No pulmonary edema. Mediastinum: Heart and mediastinal contours are unremarkable. Other: None. IMPRESSION: No acute radiographic pulmonary abnormalities. [facility]
[2017-11-18] MEDS ORDERED: ALBUTEROL NEB 2.5 MG/3 ML INH STA (18:43)
[2017-11-18] MEDS ORDERED: predniSONE 20 MG TABLET PO STA (18:43)
--- NOTE | 2017-11-18 18:44 | ED Physician Documentation ---
PD HPI DYSPNEA - Stated complaint Stated Complaint: SOA - Chief complaint Chief Complaint: Resp - History obtained from History obtained from: Patient - History of Present Illness Timing - onset: How many days ago (3) Timing - details: Intermittant Inciting event(s): Out of meds Improved by: O2, Inhaler/neb Associated symptoms: Cough, Wheezing. No: Fever Similar symptoms before: Work up / diagnostics Recently seen: Not recently seen - Additional information Additional information: Patient is a 22 year old female presenting to the emergency department for cough and wheezing. Patient states that her symptoms have been going on for the past three days. patient ran out of her inhaler but continues to smoke. 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: Ovarian cysts : Kidney stones HEENT: None Psych: Depression, Anxiety, Post traumatic stress disorder Derm: None - Past Surgical History Past Surgical History: Yes /BENDING ROLL OPERATOR: section - Present Medications Home Medications: Ambulatory Orders Medication Instructions Recorded Confirmed Ibuprofen [Motrin] 800 mg PO Q8H PRN #30 tablet 09/24/17 Chlorhexidine Gluconate [Peridex] 5 ml MM BID #118 ml 10/05/17 Clindamycin HCl [Cleocin HCl] 300 mg PO TID #21 capsule 10/05/17 HYDROcod/ACETAM 5/325 [[place] 5/325] 1 tab PO Q6H PRN #15 tablet 10/05/17 Albuterol Sulfate [Proventil Hfa 1 - 2 puffs INH Q4H PRN #1 inhaler 11/18/17 Inhaler] predniSONE [Prednisone] 40 mg PO DAILY 5 Days tablet 11/18/17 - Allergies Allergies/Adverse Reactions: Allergies Allergy/AdvReac Type Severity Reaction Status Date / Time No Known Drug Allergies Allergy Verified 09/24/17 16:44 - Social History Does the pt smoke?: Yes Smoking Status: Current every day smoker Does the pt drink ETOH?: Yes Does the pt have substance abuse?: No - Immunizations Immunizations are current?: Yes PD ED PE NORMAL - Vitals Vital signs reviewed: Yes - General General: Alert and oriented X 3, No acute distress - HEENT HEENT: Atraumatic, Ears normal, Moist mucous membranes, Pharynx benign - Neck Neck: No adenopathy - Cardiac Cardiac: RRR, No murmur - Respiratory Respiratory: No respiratory distress - Abdomen Abdomen: Soft, Non tender, Non distended - Derm Derm: Normal color, Warm and dry, No rash - Extremities Extremities: No deformity - Neuro Neuro: Alert and oriented X 3, No motor deficit, Normal speech Eye Opening: Spontaneous Motor: Obeys Commands Verbal: Oriented GCS Score: 15 PD ED PE EXPANDED - Respiratory Respiratory: Wheezing (mild wheeze with cough) Results - Vitals Vitals: Vital Signs - 24 hr 11/18/17 11/18/17 16:25 19:00 Temperature 36.1 C L Heart Rate 96 78 Respiratory 20 18 Rate Blood Pressure 106/67 O2 Saturation 96 Oxygen O2 Source Room air - Rads (name of study) chest x-ray Radiology: Final report received (no acute pathology) PD MEDICAL DECISION MAKING - ED course Complexity details: reviewed old records, reviewed results, re-evaluated patient , considered differential, d/w patient ED course: Patient was seen and examined at bedside. chest x-ray had been performed and it was within normal limits. Patient was treated with an inhaler and prednisone. Patient tolerated the treatment well. Patient was well appearing. Patient required no further work up at this time and patient was stable for discharge with outpatient follow up. - Sepsis Event Vital Signs: Vital Signs - 24 hr 11/18/17 11/18/17 16:25 19:00 Temperature 36.1 C L Heart Rate 96 78 Respiratory 20 18 Rate Blood Pressure 106/67 O2 Saturation 96 Oxygen O2 Source Room air Departure - Departure Disposition: 01 Home, Self Care Clinical Impression: Bronchitis Condition: Good Instructions: ED Bronchitis Asthmatic Follow-Up: Skye Rasmussen CUSTOMER SERVICE TRAINER [Primary Care Provider] - Within 3 Days Prescriptions: Albuterol Sulfate [Proventil Hfa Inhaler] 1 - 2 puffs INH Q4H PRN #1 inhaler PRN Reason: Shortness Of Air/Wheezing predniSONE [Prednisone] 40 mg PO DAILY 5 Days tablet Comments: Your diagnostics today were within normal limits. there is no sign of pneumonia. You will be on the steroids for the next five days. you should use your inhaler as needed. the most important thing is to quit smoking. you should follow up with your doctor if your symptoms don't improve. You may return to the emergency department at any time for new, worsening or uncontrollable symptoms. Forms: Activity restrictions Discharge Date/Time: 11/18/17 19:25
== END 2017-11-18 19:25 | disposition home or self-care (01) ==
LOC: ED 16:14
DX: J40 Bronchitis, not specified as acute or chronic (principal); F17.200 Nicotine dependence, unspecified, uncomplicated; Z91.14 Patient's other noncompliance with medication regimen
CPT/HCPCS: 71046; 94640; 94664; 99283; J7512

== ENCOUNTER 2018-01-13 08:00 | Outpatient (CLI) | payer MEDICAID ==
[2018-01-13 13:28] LABS: ALBUMIN/GLOBULIN RATIO 1.4 (1.0-2.2); BILIRUBIN,TOTAL 0.8 mg/dL (0.2-1.0); CALCIUM 8.9 mg/dL (8.5-10.3); CREATININE 0.6 mg/dL (0.4-1.0); TOTAL PROTEIN 6.9 g/dL (6.7-8.2)
[2018-01-13 13:47] LABS: BASOPHILS # (AUTO) 0.1 10^3/uL (0.0-0.1); BASOPHILS % (AUTO) 0.6 %; EOSINOPHILS # (AUTO) 0.1 10^3/uL (0.0-0.7); EOSINOPHILS % (AUTO) 1.4 %; HGB - HEMOGLOBIN 14.5 g/dL (12.0-16.0); LYMPHOCYTES # (AUTO) 2.8 10^3/uL (1.5-3.5); LYMPHOCYTES % (AUTO) 33.6 %; MEAN CORPUSCULAR HEMOGLOBIN 30.2 pg (27.0-31.0); MEAN CORPUSCULAR HGB CONC 34.9 g/dL (32.0-36.0); MEAN CORPUSCULAR VOLUME 86.5 fL (81.0-99.0); MEAN PLATELET VOLUME 9.5 fL (7.9-10.8); MONOCYTES # (AUTO) 0.4 10^3/uL (0.0-1.0); MONOCYTES % (AUTO) 4.7 %; NEUTROPHILS % (AUTO) 59.7 %; PLT - PLATELET COUNT 191 10^3/uL (130-450); RED BLOOD COUNT 4.79 10^6/uL (4.20-5.40); RED CELL DISTRIBUTION WIDTH 13.2 % (12.0-15.0); WHITE BLOOD COUNT 8.4 x10^3/uL (4.8-10.8)
== END 2018-01-13 08:01 | disposition home or self-care (01) ==
LOC: LAB.N 08:00
PROVIDERS: ATTEND Family Medicine
DX: R10.31 Right lower quadrant pain (principal); F41.0 Panic disorder [episodic paroxysmal anxiety]
CPT/HCPCS: 36415; 80053; 82150; 83690; 84443; 85025

== ENCOUNTER 2018-01-21 08:00 | Outpatient (CLI) | payer MEDICAID | END 2018-01-21 08:01 | disposition home or self-care (01) | LOC: LAB.R 08:00 | PROVIDERS: ATTEND Registered Nurse | DX: Z30.432 Encounter for removal of intrauterine contraceptive device (principal) | CPT/HCPCS: 87491; 87591 ==

== ENCOUNTER 2019-02-01 10:14 | Outpatient (CLI) | payer MEDICAID ==
[2019-02-01 12:18] LABS: BASOPHILS % (AUTO) 0.5 %; EOSINOPHILS # (AUTO) 0.1 10^3/uL (0.0-0.7); EOSINOPHILS % (AUTO) 0.9 %; HGB - HEMOGLOBIN 14.8 g/dL (12.0-16.0); LYMPHOCYTES # (AUTO) 2.4 10^3/uL (1.5-3.5); LYMPHOCYTES % (AUTO) 29.4 %; MEAN CORPUSCULAR HEMOGLOBIN 30.1 pg (27.0-31.0); MEAN CORPUSCULAR HGB CONC 34.7 g/dL (32.0-36.0); MEAN CORPUSCULAR VOLUME 86.8 fL (81.0-99.0); MEAN PLATELET VOLUME 11.4 fL (7.9-10.8); MONOCYTES # (AUTO) 0.5 10^3/uL (0.0-1.0); MONOCYTES % (AUTO) 5.7 %; NEUTROPHILS # (AUTO) 5.1 10^3/uL (1.5-6.6); NEUTROPHILS % (AUTO) 63.1 %; PLT - PLATELET COUNT 200 10^3/uL (130-450); RED BLOOD COUNT 4.91 10^6/uL (4.20-5.40); RED CELL DISTRIBUTION WIDTH 13.1 % (12.0-15.0); WHITE BLOOD COUNT 8.1 x10^3/uL (4.8-10.8)
[2019-02-01 12:33] LABS: ALBUMIN 4.2 g/dL (3.2-5.5); ALBUMIN/GLOBULIN RATIO 1.4 (1.0-2.2); CALCIUM 9.1 mg/dL (8.5-10.3); CREATININE 0.7 mg/dL (0.4-1.0); TOTAL PROTEIN 7.3 g/dL (6.7-8.2)
== END 2019-02-01 23:59 | disposition home or self-care (01) ==
LOC: LAB.N 10:14
PROVIDERS: ATTEND Physician Assistant Medical
DX: R19.00 Intra-abdominal and pelvic swelling, mass and lump, unspecified site (principal); R10.9 Unspecified abdominal pain
CPT/HCPCS: 36415; 80053; 85025

== ENCOUNTER 2019-02-07 11:42 | Outpatient (CLI) | payer MEDICAID ==
--- NOTE | 2019-02-07 14:46 | Ultrasound Report ---
Reason: ABD LUMP, ABD CRAMPS Procedure Date: 02/07/2019 Accession Number: [id number] / [id number] Procedure: US - Abdomen Limited CPT Code: FULL RESULT: EXAM: ABDOMEN ULTRASOUND LIMITED, RUQ EXAM DATE: 02/07/2019 12:46 PM. CLINICAL HISTORY: Abdominal pain. Periumbilical anterior abdominal wall lump. COMPARISON: None. TECHNIQUE: Real-time scanning was performed with static images obtained. FINDINGS: Liver: Normal in size and echotexture. 15.0 cm. Main portal vein flow: Hepatopetal. Gallbladder: Normal. No stones, wall thickening, or sonographic Egan's sign. Biliary System: CBD measures 7.1 mm. No intrahepatic or extrahepatic ductal dilatation. Other: The right renal length is 11.3 cm. Right kidney is normal. Targeted ultrasound was performed of the palpable painful periumbilical site, and there is no corresponding abnormality. IMPRESSION: Negative examination. [facility]
== END 2019-02-07 11:43 | disposition home or self-care (01) ==
LOC: DI 11:42
PROVIDERS: ATTEND Physician Assistant Medical
DX: R19.00 Intra-abdominal and pelvic swelling, mass and lump, unspecified site (principal); R10.9 Unspecified abdominal pain
CPT/HCPCS: 76705

== ENCOUNTER 2019-04-19 11:33 | Outpatient (CLI) | payer MEDICAID ==
[2019-04-19 11:53] LABS: BASOPHILS % (AUTO) 0.6 %; EOSINOPHILS # (AUTO) 0.1 10^3/uL (0.0-0.7); EOSINOPHILS % (AUTO) 1.8 %; HGB - HEMOGLOBIN 14.7 g/dL (12.0-16.0); LYMPHOCYTES # (AUTO) 1.9 10^3/uL (1.5-3.5); LYMPHOCYTES % (AUTO) 28.8 %; MEAN CORPUSCULAR HGB CONC 34.3 g/dL (32.0-36.0); MEAN CORPUSCULAR VOLUME 90.5 fL (81.0-99.0); MEAN PLATELET VOLUME 11.2 fL (7.9-10.8); MONOCYTES # (AUTO) 0.4 10^3/uL (0.0-1.0); MONOCYTES % (AUTO) 6.5 %; NEUTROPHILS # (AUTO) 4.1 10^3/uL (1.5-6.6); NEUTROPHILS % (AUTO) 61.8 %; PLT - PLATELET COUNT 194 10^3/uL (130-450); RED BLOOD COUNT 4.74 10^6/uL (4.20-5.40); RED CELL DISTRIBUTION WIDTH 13.4 % (12.0-15.0); WHITE BLOOD COUNT 6.6 x10^3/uL (4.8-10.8)
[2019-04-19 12:08] LABS: CALCIUM 9.7 mg/dL (8.5-10.3); CREATININE 0.8 mg/dL (0.4-1.0)
== END 2019-04-19 11:34 | disposition home or self-care (01) ==
LOC: LAB 11:33
PROVIDERS: ATTEND Obstetrics & Gynecology
DX: Z30.2 Encounter for sterilization (principal)
CPT/HCPCS: 36415; 80048; 85025; 86850; 86900; 86901

== ENCOUNTER 2019-04-20 13:01 | Day surgery (SDC) | payer MEDICAID ==
[~2019-04-20 13:01] MED LIST: CEFAZOLIN SODIUM IN 0.9 % NACL 2 GM/100 ML BAG IV ONE
[2019-04-20] MEDS ORDERED: fentaNYL 100 MCG/2 ML VIAL IVP ONE (13:02)
[2019-04-20] MEDS ORDERED: GLYCOPYRROLATE 1 MG/5 ML VIAL IVP ONE (13:02)
[2019-04-20] MEDS ORDERED: PROPOFOL 200 MG/20 ML VIAL IVP ONE (13:02)
[2019-04-20] MEDS ORDERED: ROCURONIUM 50 MG/5 ML VIAL IVP ONE (13:02)
[2019-04-20] MEDS ORDERED: DEXAMETHASONE 4 MG/ML VIAL IVP ONE (13:02)
[2019-04-20] MEDS ORDERED: KETOROLAC 30 MG/ML VIAL IVP ONE (13:02)
[2019-04-20] MEDS ORDERED: MIDAZOLAM 2 MG/2 ML VIAL IVP ONE (13:02)
--- NOTE | 2019-04-20 13:24 | ANESTHESIA ---
Pre-Anesthesia VS, & Labs - Diagnosis Desires permanent sterility - Procedure Lap salpingectomy Height 5 ft 7 in Body Mass Index 25.5 - NPO >8 hours - Is Patient ?: No - Lab Results Lab results reviewed: Yes Home Medications and Allergies Allergies/Adverse Reactions: Allergies Allergy/AdvReac Type Severity Reaction Status Date / Time No Known Drug Allergies Allergy Verified 09/24/17 16:44 Anes History & Medical History - Anesthetic History Anesthesia Complications: reports: No previous complications Family history of Anesthesia Complications: Denies Family history of Malignant Hyperthermia: Denies - Medical History Cardiovascular: reports: None Pulmonary: reports: None Gastrointestinal: reports: None Urinary: reports: Kidney stones Neuro: reports: None Musculoskeletal: reports: None Endocrine/Autoimmune: reports: None Blood Disorders: reports: None Skin: reports: None Smoking Status: Current every day smoker Psychosocial: reports: No issues indicated - Surgical History Eyes Ears Nose Throat (EENT): Other (third molars) Gynecologic: section Exam General: Alert, Oriented x3, Cooperative Dental: TMJ (Right side) Mouth Openin Fingerbreadth Mallampati classification: II Thyromental Distance: greater than 6 cm Respiratory: Lungs clear Cardiovascular: Regular rate Mental/Cognitive Status: Alert/Oriented X3, Normal for patient Cognitive Status: Within normal limits Plan Anesthesia Type: General Consent for Procedure(s) Verified and Reviewed: Yes Code Status: Attempt Resuscitation ASA classification: 2-Mild systemic disease Is this case an emergency?: No
[2019-04-20] MEDS ORDERED: LACTATED RINGERS 1,000 ML IV ONE (13:31)
[2019-04-20 13:32] LABS: HCG UR QUAL NEGATIVE
[2019-04-20] MEDS ORDERED: BUPIVACAINE 0.5% PF 30 ML VIAL ONE (14:11)
[2019-04-20] MEDS ORDERED: LIDOCAINE 1%-EPI 1:100000 20 ML MDV ONE (14:12)
[2019-04-20] MEDS ORDERED: LIDOCAINE MPF 2%-EPI 1:200000 20 ML VIAL ONE (14:26)
[2019-04-20] MEDS ORDERED: LORazepam 2 MG/ML VIAL IVP PRN (16:10)
[2019-04-20] MEDS ORDERED: HYDROmorphone 0.5 MG/0.5 ML SYRINGE IVP PRN (16:10)
[2019-04-20] MEDS ORDERED: ONDANSETRON 4 MG/2 ML VIAL IVP PRN (16:10)
[2019-04-20] MEDS ORDERED: oxyCODONE 5 MG TABLET PO PRN (16:10)
--- NOTE | 2019-04-20 16:16 | OPERATIVE REPORT ---
Operative Report - General Procedure Date: 04/20/19 Planned Procedure: Laproscopic bilateral salpingectomy Pre-Op Diagnosis: requests perminant sterilization Procedure Performed: laproscopic bilateral salpingectomy Lysis of uterine abdominal Adhesions Post Op Diagnosis: requests perminant sterlization omental, uterine abdominal adhesions - Procedure Note Primary Surgeon: Dat Soto MD Anesthesia Provider: Efra Jasso CRNA Anesthesia Technique: General ET tube Pathology: left and right fallopian tubes IV Fluids (mL): 500 Estimated Blood Loss (mL): 10 Urine Output (mL): 30 Findings: dense omental, uterine, to peritoneal adhesions, Normal tubes and ovaries Complications: none - Other Other Information/Narrative: [id number]
[2019-04-20] MEDS ORDERED: ACETAMINOPHEN 1,000 MG/100 ML 100 ML IV ONE (16:30)
[2019-04-20 17:03] VITALS: BP 114/82
--- NOTE | 2019-04-20 17:10 | OPERATIVE REPORT ---
DATE OF SERVICE: 04/20/2019 Physician: Dat Soto MD PREOPERATIVE DIAGNOSIS: Patient requests permanent sterilization. POSTOPERATIVE DIAGNOSIS: Patient requests permanent sterilization plus dense omental as well as uter [id number] adhesions, normal tubes and ovaries. PROCEDURE: Laparoscopic bilateral salpingectomy with lysis of omental as well as uterine adhesions. SURGEON: Dat Soto MD ANESTHESIA: General via endotracheal tube. DIAGRAM CLERK: Efra Jasso CRNA. ESTIMATED BLOOD LOSS: 10 mL. URINE OUTPUT: 30 mL. FINDINGS: Upon entering the abdominal cavity, there was evidence of dense omental adhesions to the p eritoneal surface in the midline. There was no evidence of any injury at site of insertion. There w as also evidence of filmy as well as dense uterine adhesions to the anterior abdominal wall. The adh esions were on the left hand side of the peritoneum. The filmy adhesions were noted to be more midli ne in origin. The tubes and ovaries appeared free of disease. The appendix also appeared to be free of disease. DESCRIPTION OF PROCEDURE: Following adequate endotracheal anesthesia, patient was placed in the dors al lithotomy position in Justus stirrups. At this point, a pelvic examination was performed. The diana qasim was palpated anterior. At this point, she was prepped and draped in the usual fashion. A timeou t was performed, at which time the concerns were addressed. A speculum was placed in the vagina. Th e cervix was visualized, grasped posteriorly with a single-tooth tenaculum. The uterus was then soun ded to 10 cm and then dilated up to 7 mm. A uterine manipulator was placed in the cervix and then in flated. At this point, the cervix was released from the single-tooth tenaculum. The twisting press operator's glov es were changed and following this a subumbilical incision was made following injection with 0.25% Ma rcaine with 1% lidocaine with epinephrine. A trocar and sheath were placed under direct visualizatio n. At this point, the abdominal cavity was insufflated. There was no evidence of any injury at the time of the insertion site. Left and right lower quadrant incisions were made following local anesth esia with 0.25% Marcaine with 1% lidocaine with epinephrine. These were both placed under direct vis ualization. At this point, the omental adhesion was noted to the anterior abdominal wall. The camer a was placed in the right lower quadrant port and the midline port was used to insert a LigaSure. Th is was used to cauterize and transect the omental adhesions all the way down to its terminus. There was no bleeding from the omental side or the abdominal wall side. At this point, the adhesions aroun d the uterus were noted. The left fallopian tube was grasped at its fimbriated end and a LigaSure wa s used to cauterize the mesosalpinx all the way to the cornu. The cornua was then cauterized and tra nsected. The right tube and ovary were treated in identical fashion. There was evidence of good hem ostasis at both LigaSure incision sites. There was no evidence of bleeding. Then, utilizing the Lig aSure, the filmy adhesions were taken off the anterior uterine wall where it was adhesed to the perit oneum. There was a very dense adhesion on the left hand side. It was decided that taking this down would be changing this from a minor to a major case. The area was then irrigated totally with irriga tor-aspirator. The peritoneal cavity was then aspirated. There was no evidence of any bleeding. At this point, both left and right lower quadrant ports were removed under direct visualization. There is no evidence of any bleeding. The CO2 was then allowed to escape from the subumbilical port. Bot h ports were closed utilizing 4-0 Monocryl subcuticular with Dermabond being placed. The instruments were then removed from the vagina. The patient tolerated the procedure well and was taken to recove ry in stable condition. Sponge and needle counts were correct. TD: 04/20/2019 16:26
== END 2019-04-20 13:02 | disposition home or self-care (01) ==
LOC: SDS 13:01
PROVIDERS: ATTEND Obstetrics & Gynecology
PROC: 0DNW4ZZ Release Peritoneum, Percutaneous Endoscopic Approach (ICD-10-PCS; 2019-04-20)
PROC: 0UT74ZZ Resection of Bilateral Fallopian Tubes, Percutaneous Endoscopic Approach (ICD-10-PCS; principal; 2019-04-20 14:45)
DX: Z30.2 Encounter for sterilization (principal); K66.0 Peritoneal adhesions (postprocedural) (postinfection); F17.210 Nicotine dependence, cigarettes, uncomplicated
CPT/HCPCS: 49329; 58661; 81025; A9270; J0131; J0690; J7120; 80048; 85025; 86850; 86900; 86901

== ENCOUNTER 2019-08-02 19:42 | Emergency (ER) | payer MEDICAID ==
[2019-08-02 20:18] LABS: BILIRUBIN,URINE NEGATIVE (NEGATIVE); CLARITY,URINE HAZY (CLEAR); GLUCOSE, URINE (UA) NEGATIVE (NEGATIVE); KETONES,URINE (UA) NEGATIVE (NEGATIVE); LEUKOCYTE ESTERASE, URINE SMALL (NEGATIVE); NITRITE,URINE POSITIVE (NEGATIVE); OCCULT BLOOD,URINE SMALL (NEGATIVE); PH,URINE 7.5 PH (5.0-7.5); PROTEIN,URINE 30 mg/dL (NEGATIVE); UROBILINOGEN,URINE 1 (NORMAL) E.U./dL (NORMAL)
[2019-08-02 20:20] LABS: HCG UR QUAL NEGATIVE
[2019-08-02] MEDS ORDERED: cephALEXin 250 MG CAPSULE PO STA (20:21)
--- NOTE | 2019-08-02 20:21 | ED Physician Documentation ---
History of Present Illness - Stated complaint Stated Complaint: FEMALE SOA - Chief complaint Chief Complaint: UTI - Additonal information Additional information: This is a 24-year-old female with history of anxiety who presents with pain and burning on urination and some discomfort over her posterior flanks. She began developing foul-smelling urine several days ago and has had dysuria today. She has a little bit of flank discomfort as well on bilateral sides which is worse with takes a deep breath in. She said that sometimes she feels this way just from her anxiety alone. She denies any cough, fever, history of blood clots, l eg swelling. 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 HEENT: Other - Present Medications Home Medications: Ambulatory Orders Medication Instructions Recorded Confirmed Ibuprofen [Motrin] 800 mg PO Q8H PRN #30 tablet 09/24/17 04/19/19 Cefdinir 300 mg PO BID #14 capsule 08/02/19 Fluconazole [Diflucan] 150 mg PO ONCE PRN #1 tablet 08/02/19 - Allergies Allergies/Adverse Reactions: Allergies Allergy/AdvReac Type Severity Reaction Status Date / Time No Known Drug Allergies Allergy Verified 08/02/19 19:58 - Social History Does the pt smoke?: Yes Smoking Status: Current every day smoker Does the pt drink ETOH?: Yes Does the pt have substance abuse?: No - Immunizations Immunizations are current?: Yes - POLST Patient has POLST: No PD ED PE NORMAL - Vitals Vital signs reviewed: Yes - General General: Alert and oriented X 3, No acute distress - HEENT HEENT: PERRL - Neck Neck: Supple, no meningeal sign - Cardiac Cardiac: RRR, No murmur - Respiratory Respiratory: Clear bilaterally - Abdomen Abdomen: Normal bowel sounds, Soft, Non tender, Non distended - Derm Derm: Warm and dry - Extremities Extremities: No deformity - Neuro Neuro: Alert and oriented X 3 - Psych Psych: Normal mood, Normal affect Results - Vitals Vitals: Vital Signs - 24 hr 08/02/19 08/02/19 19:58 20:50 Temperature 37.1 C 37.0 C Heart Rate 82 99 Respiratory 14 16 Rate Blood Pressure 94/59 L 112/76 O2 Saturation 100 100 Oxygen O2 Source Room air - EKG (time done) 20:30 Other comments: Other comments (Rate 74, rhythm sinus, RSR is present in V1. There is no significant ST segment elevation or depression, intervals within normal limits) - Labs Labs: Laboratory Tests 08/02/19 08/02/19 20:10 20:10 Urine Color YELLOW Urine Clarity HAZY Urine pH 7.5 Ur Specific [place] 1.020 1.020 Urine Protein 30 H Urine Glucose (UA) NEGATIVE Urine Ketones NEGATIVE Urine Occult Blood SMALL H Urine Nitrite POSITIVE H Urine Bilirubin NEGATIVE Urine Urobilinogen 1 (NORMAL) Ur Leukocyte Esterase SMALL H Urine RBC 0-5 Urine WBC 6-10 H Ur Squamous Epith Cells NONE SEEN Amorphous Sediment Few Urine Bacteria Many H Ur Microscopic Review INDICATED Urine Culture Comments INDICATED Urine HCG, Qual NEGATIVE PD MEDICAL DECISION MAKING - ED course Complexity details: considered differential (UTI, pyelonephritis, ACS, dysrhythmia, PE, pneumonia, URI, pneumothorax) ED course: Patient is very well-appearing on arrival, she is clear breath sounds, normal oxygen saturation, no fever or cough, no signs of pneumonia. She has no chest pain, again excellent breath sounds and oxygen saturation, no signs of pneumothorax. PE was considered however patient is PERC negative, making this exceedingly unlikely. She has no chest pain, and on repeat evaluation her shortness of breath is actually improved, making PE or serious pathology extremely unlikely. EKG shows no convincing signs of ischemia or dysrhythmia, No change from past EKG. She has no chest pain, cardiac pathology exceeding likely especially given her age. Urine is positive for UTI, she was given Keflex here. HCG negative. She is nontoxic, afebrile, not tachycardic, no signs of urosepsis or infection requiring hospitalization. We will treat with a course of cefdinir. I reviewed return precautions with the patient, PCP follow-up, the patient was discharged home in good condition, feeling well. Departure - Departure Disposition: 01 Home, Self Care Clinical Impression: UTI (urinary tract infection) Qualifiers: Urinary tract infection type: acute cystitis Hematuria presence: without hematuria Qualified Code(s): N30.00 - Acute cystitis without hematuria Condition: Good Instructions: ED UTI Cystitis Female Follow-Up: Kenny Story PA-C [Primary Care Provider] - Prescriptions: Cefdinir 300 mg PO BID #14 capsule Fluconazole [Diflucan] 150 mg PO ONCE PRN #1 tablet PRN Reason: As Needed Per Provider Orders Comments: You appear to have a UTI today. Take the antibiotic as prescribed. If you are de veloping new or worsening symptoms such as difficulty breathing, chest pain, fever, return to the emergency department. Discharge Date/Time: 08/02/19 20:57
[2019-08-02 20:26] LABS: AMORPHOUS SEDIMENT,UR Few /LPF; BACTERIA,URINE Many /HPF (None Seen); RBC,URINE 0-5 /HPF (0-5); SQUAMOUS EPITHELIAL CELL,UR NONE SEEN (<= Few)
[2019-08-02 20:51] VITALS: BP 112/76
== END 2019-08-02 20:57 | disposition home or self-care (01) ==
LOC: ED 19:42
DX: N30.00 Acute cystitis without hematuria (principal); F17.200 Nicotine dependence, unspecified, uncomplicated
CPT/HCPCS: 81001; 81025; 87086; 87181; 93005; 99283; 99284; A9270; 81003

== ENCOUNTER 2019-09-08 03:57 | Emergency (ER) | payer MEDICAID ==
--- NOTE | 2019-09-08 04:05 | ED Physician Documentation ---
History of Present Illness - Stated complaint Stated Complaint: FEMALE - History obtained from History obtained from: Patient (Patient is a 24-year-old female who presents with a chief complaint of dysuria and suprapubic tenderness. She denies being . She denies any fevers chills or flank pain she reports recently she was diagnosed with urinary tract infection and reports that she completed all of her antibiotics but now she has return of her symptoms she denies pelvic pain vaginal bleeding or vaginal discharge or any history of STIs.) Review of Systems Constitutional: reports: Reviewed and negative Eyes: reports: Reviewed and negative Ears: reports: Reviewed and negative Nose: reports: Reviewed and negative Throat: reports: Reviewed and negative Cardiac: reports: Reviewed and negative Respiratory: reports: Reviewed and negative GI: reports: Reviewed and negative : reports: Dysuria Skin: reports: Reviewed and negative Musculoskeletal: reports: Reviewed and negative Neurologic: reports: Reviewed and negative Psychiatric: reports: Reviewed and negative Endocrine: reports: Reviewed and negative Immunocompromised: reports: Reviewed and negative PD PAST MEDICAL HISTORY - Past Medical History Cardiovascular: None Respiratory: None Neuro: None Endocrine/Autoimmune: None GI: 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: Ovarian 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 : Kidney stones HEENT: Chronic vision loss Psych: Depression, Anxiety, Panic attacks, Post traumatic stress disorder Musculoskeletal: None Derm: None - Past Surgical History Past Surgical 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 HEENT: Other - Present Medications Home Medications: Ambulatory Orders Medication Instructions Recorded Confirmed Ibuprofen [Motrin] 800 mg PO Q8H PRN #30 tablet 09/24/17 04/19/19 Cefdinir 300 mg PO BID #14 capsule 08/02/19 Fluconazole [Diflucan] 150 mg PO ONCE PRN #1 tablet 08/02/19 Ciprofloxacin HCl [Cipro] 500 mg PO BID 7 Days #14 tablet 09/08/19 Phenazopyridine HCl [Pyridium] 100 mg PO TID PRN #6 tablet 09/08/19 - Allergies Allergies/Adverse Reactions: Allergies Allergy/AdvReac Type Severity Reaction Status Date / Time No Known Drug Allergies Allergy Verified 09/08/19 04:10 - Social History Does the pt smoke?: Yes Smoking Status: Current every day smoker Does the pt drink ETOH?: Yes Does the pt have substance abuse?: No - Immunizations Immunizations are current?: Yes - POLST Patient has POLST: No PD ED PE NORMAL - Vitals Vital signs reviewed: Yes - General General: Alert and oriented X 3, No acute distress, Well developed/nourished - HEENT HEENT: Atraumatic, PERRL, Moist mucous membranes - Neck Neck: Supple, no meningeal sign - Cardiac Cardiac: RRR, No murmur, Strong equal pulses - Respiratory Respiratory: No respiratory distress, Clear bilaterally - Abdomen Abdomen: Normal bowel sounds, Soft, Non tender, Non distended, No organomegaly - Female Female : Pt declined - Rectal Rectal: Pt declined - Back Back: No CVA TTP, No spinal TTP - Derm Derm: Normal color, Warm and dry, No rash - Extremities Extremities: No deformity, Normal ROM s pain, No edema, No calf tenderness / cord - Neuro Neuro: Alert and oriented X 3, 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, No motor deficit, No sensory deficit, Normal speech - Psych Psych: Normal mood, Normal affect Results - Vitals Vitals: Vital Signs - 24 hr 09/08/19 04:00 Temperature 36.5 C Heart Rate 89 Respiratory 16 Rate Blood Pressure 115/70 O2 Saturation 98 Oxygen O2 Source Room air - Labs Labs: Laboratory Tests 09/08/19 04:30 Urine Color YELLOW Urine Clarity HAZY Urine pH 6.0 Ur Specific [place] >=1.030 H Urine Protein 100 H Urine Glucose (UA) NEGATIVE Urine Ketones NEGATIVE Urine Occult Blood MODERATE H Urine Nitrite POSITIVE H Urine Bilirubin NEGATIVE Urine Urobilinogen 0.2 (NORMAL) Ur Leukocyte Esterase TRACE H Urine RBC 11-25 H Urine WBC 11-25 H Ur Squamous Epith Cells FEW Squamous Urine Bacteria Moderate H Ur Microscopic Review INDICATED Urine Culture Comments INDICATED Urine HCG, Qual NEGATIVE PD MEDICAL DECISION MAKING - ED course Complexity details: re-evaluated patient (Patient was reexamined patient reports that she did complete her previous course of antibiotics on reexamination she is complaining of some right-sided flank pain at this point we will treat her for pyelonephritis. She will receive 1 dose of intramuscular Rocephin here in the emergency department her urine culture was reviewed its pansensitive given the fact that she failed treatment with Keflex as an outpatient recently we will try different medication reviewing all the sensitivities and different available options for treatment ultimately a joint decision was made with the patient to start her on Cipro should pay she states that she is taken Cipro before I explained all benefits, alternatives, risks to her to include possible tendon injury or rupture to include the Achilles and she would like to proceed with being treated with oral Cipro on outpatient basis she accepts all risks to include any possible adverse outcome to include but not limited to tendon rupture.), considered differential (History is concerning for cystitis, will send a urinalysis for evaluation.), d/w patient, other (Urinalysis is consistent with urinary tract infection patient was treated with Keflex previously her previous urine culture was reviewed and it is pansensitive this point we will treat with Macrobid.) Departure - Departure Disposition: 01 Home, Self Care Clinical Impression: Cystitis, Pyelonephritis Condition: Stable Instructions: Pyelonephritis Dc Follow-Up: Kenny Story PA-C [Primary Care Provider] - 09/08/19 Prescriptions: Ciprofloxacin HCl [Cipro] 500 mg PO BID 7 Days #14 tablet Phenazopyridine HCl [Pyridium] 100 mg PO TID PRN #6 tablet PRN Reason: Bladder Spasms Comments: Follow-up with your primary care provider today for recheck take antibiotics as directed hydrate well return to the emergency department with any concerns.
[2019-09-08 04:11] VITALS: BP 115/70
[2019-09-08 04:39] LABS: GLUCOSE, URINE (UA) NEGATIVE (NEGATIVE); KETONES,URINE (UA) NEGATIVE (NEGATIVE); LEUKOCYTE ESTERASE, URINE TRACE (NEGATIVE); NITRITE,URINE POSITIVE (NEGATIVE); OCCULT BLOOD,URINE MODERATE (NEGATIVE); PROTEIN,URINE 100 mg/dL (NEGATIVE); UROBILINOGEN,URINE 0.2 (NORMAL) E.U./dL (NORMAL)
[2019-09-08 04:51] LABS: BILIRUBIN,URINE NEGATIVE (NEGATIVE); CLARITY,URINE HAZY (CLEAR); HCG UR QUAL NEGATIVE; ICTOTEST,URINE NEGATIVE
[2019-09-08 04:52] LABS: BACTERIA,URINE Moderate /HPF (None Seen); SQUAMOUS EPITHELIAL CELL,UR FEW Squamous (<= Few)
[2019-09-08] MEDS ORDERED: NITROFURANTOIN MACRO 100 MG CAPSULE PO STA (04:56)
[2019-09-08] MEDS ORDERED: PHENAZOPYRIDINE 100 MG TABLET PO STA (04:56)
[2019-09-08] MEDS ORDERED: cefTRIAXone 500 MG VIAL IM STA (04:58)
[2019-09-08] MEDS ORDERED: LIDOCAINE 1% 2 ML VIAL MC ONE (04:58)
== END 2019-09-08 05:50 | disposition home or self-care (01) ==
LOC: ED 03:57
DX: N30.90 Cystitis, unspecified without hematuria (principal); N12 Tubulo-interstitial nephritis, not specified as acute or chronic; F17.200 Nicotine dependence, unspecified, uncomplicated
CPT/HCPCS: 81001; 81025; 87086; 87181; 96372; 99283; A9270; 81003